=== PATIENT | male | born 1965 | race African-American/Black ===

== ENCOUNTER 2016-11-09 09:08 | Outpatient (CLI) | payer MEDICARE, MEDICAID ==
[2016-11-09 10:45] LABS: Bilirubin Negative (Negative); Blood, Urine Negative (Negative); Glucose, Urine (Dipstick) Negative (Negative); Ketone, Urine Negative (Negative); Nitrite Negative (Negative); Protein, Urine (Dipstick) Negative (Neg-Trace); Urobilinogen 0.2 mg/dL (0.2-1.0)
[2016-11-09 10:48] LABS: Bacteria/HPF None Seen HPF (None Seen); Hyaline Casts/LPF 0-3 HYALINE CAST LPF (0-3 Hyaline); RBC/HPF 0-3 HPF (0-3); Squamous Epithelial 0-3 HPF (0-3); WBC/HPF 0-3 HPF (0-3)
[2016-11-09 10:59] LABS: Anion Gap 10 mmol/L (10-20); BUN (Urea Nitrogen) 13 mg/dL (8.9-20.6); Calc. Creatinine Clearance 0 mL/min (70-130); Calcium 8.8 mg/dL (7.8-10.44); Carbon Dioxide 24 mmol/L (22-29); Chloride 104 mmol/L (98-107); Estimated GFR-MDRD Greater than 90
--- NOTE | 2016-11-09 12:35 | CT ---
CT ABDOMEN WITH AND WITHOUT IV CONTRAST: HISTORY: Urethral stricture. COMPARISON: 06/11/11. FINDING: The renal collecting systems are decompressed without stone evident. No renal masses are apparent. Tiny cyst at the lateral cortex of the left kidney is stable. Liver is diffusely hypodense. Nonsp ecific reactive-appearing lymph nodes in the right lower quadrant are noted. Lack of oral contrast limits evaluation of the bowel. There is no evidence of obstruction. The pelvis was not imaged. Bilateral pars interarticularis defects are apparent at the lumbosacral junction. IMPRESSION: 1. No significant renal abnormalities are demonstrated. 2. Hepatosteatosis. POS: [facility]
[2016-11-09] MEDS ORDERED: Iopamidol 370 76% 100 ML VIAL ONE (14:08)
== END 2016-11-09 09:09 | disposition home or self-care (01) ==
LOC: CT 09:08
PROVIDERS: ATTEND Urology
DX: Z12.5 Encounter for screening for malignant neoplasm of prostate (principal); N35.9 Urethral stricture, unspecified; N28.1 Cyst of kidney, acquired; Z87.448 Personal history of other diseases of urinary system; K76.0 Fatty (change of) liver, not elsewhere classified
CPT/HCPCS: 74170; 80048; 81001; 82565; 87086; 88112; G0103; 36415

== ENCOUNTER 2017-01-19 22:33 | Emergency (ER) | payer MEDICARE, MEDICAID ==
--- NOTE | 2017-01-19 23:20 | RAD ---
EXAM: CHEST ONE VIEW 01/19/17 COMPARISON: 04/02/16 HISTORY: Dyspnea. FINDINGS: Normal cardiac silhouette. Pulmonary vessels and hilum are normal. No mass. No consolidation. No pneu mothorax or osseous abnormality. IMPRESSION: No acute cardiopulmonary process. POS: [facility]
[2017-01-19 23:25] LABS: PTT 31.8 SEC (22.9-36.1); Prothrombin Time 16.5 SEC (12.0-14.7)
[2017-01-19 23:42] LABS: ALT (SGPT) 21 U/L (8-55); AST (SGOT) 23 U/L (5-34); Alkaline Phosphatase 70 U/L (40-150); Anion Gap 9 mmol/L (10-20); BUN (Urea Nitrogen) 19 mg/dL (8.9-20.6); Bilirubin, Total 0.6 mg/dL (0.2-1.2); CK (CPK) 162 U/L (30-200); Calc. Creatinine Clearance 0 mL/min (70-130); Calcium 8.1 mg/dL (7.8-10.44); Carbon Dioxide 23 mmol/L (22-29); Chloride 98 mmol/L (98-107); Estimated GFR-MDRD 64; Globulin 6.9 g/dL (2.4-3.5); Lipase 31 U/L (8-78); Protein, Total 10.1 g/dL (6.0-8.3)
[2017-01-19 23:46] LABS: Troponin I Less than 0.010 ng/mL (< 0.028)
[2017-01-19 23:51] LABS: Band 2 % (5-11); Hematocrit 37.9 % (42.0-52.0); Mean Platelet Volume 8.1 fL (7.4-10.4); Neutrophil 56 % (42-75); Reactive Lymphocytes 3 % (0-10); Red Blood Cell (RBC) Count 4.28 mill/uL (4.70-6.10)
--- NOTE | 2017-01-20 08:00 | ULT ---
PRELIMINARY REPORT/[facility]/EMERGENCY AFTER HOURS PROCEDURE: EXAM: US Abdomen Limited, Right Upper Quadrant EXAM DATE/TIME: Exam ordered 01/19/2017 11:51 PM CLINICAL HISTORY: 51 years old, male; Pain and signs and symptoms; Nausea; Abdominal pain; Flank; Right TECHNIQUE: Real-time ultrasound of the right upper quadrant with image documentation. COMPARISON: No relevant prior studies available. FINDINGS: Liver: The liver is enlarged and echogenic compatible with fatty liver. No intrahepatic bile duct dil ation. Gallbladder: Gallbladder wall thickness measures 2 mm. There is no gallbladder stones or sludge. A negative sonographic Tamez sign is reported. Common bile duct: Common bile duct measures 4 mm. No stones. No dilation. Pancreas: The pancreas is poorly-visualized due to overlying bowel gas. Right kidney: The RIGHT kidney measures 10.5 x 5.6 x 5.0 cm. No stones. No hydronephrosis. IMPRESSION: Hepatic steatosis. Thank you for allowing us to participate in the care of your patient. Dictated and Authenticated by: Dejuan Smith MD 01/20/2017 12:26 AM Central Time ([place] & [place]) FINAL REPORT RIGHT UPPER QUADRANT ULTRASOUND: I agree with the preliminary report given by Dr. Dejuan Smith of [facility]. POS: [facility]
--- NOTE | 2017-02-08 13:54 | EKG ---
Test Reason : Blood Pressure : / mmHG Vent. Rate : 095 BPM Atrial Rate : 095 BPM P-R Int : 156 ms QRS Dur : 094 ms QT Int : 390 ms P-R-T Axes : 029 -16 003 degrees QTc Int : 490 ms Normal sinus rhythm Nonspecific T wave abnormality Prolonged QT Abnormal ECG Confirmed by RENÉ RESENDIZ, RUDDY ([id number]), makeup editor CRESENCIO LIZARRAGA ([id number]) on 02/08/2017 1:52:40 PM Referred By: Confirmed By:RUDDY MERRITT MD
== END 2017-01-20 01:40 | disposition home or self-care (01) ==
LOC: ERS 22:33
DX: R05 Cough (principal); R10.11 Right upper quadrant pain; I10 Essential (primary) hypertension; F32.9 Major depressive disorder, single episode, unspecified; Z79.899 Other long term (current) drug therapy
CPT/HCPCS: 36415; 71010; 76705; 80053; 82550; 82553; 83690; 83880; 84484; 85025; 85379; 85610; 85730; 93005

== ENCOUNTER 2017-03-31 08:20 | Day surgery (SDC) | payer MEDICARE, MEDICAID ==
[2017-03-30 10:50] VITALS: BMI 47.8
[2017-03-31 09:05] LABS: Bilirubin Negative (Negative); Blood, Urine Negative (Negative); Clarity CLEAR (Clear); Glucose, Urine (Dipstick) Negative (Negative); Leukocyte Negative (Negative); Nitrite Negative (Negative); Protein, Urine (Dipstick) Negative (Neg-Trace); Specific Gravity, Urine 1.017 (1.002-1.036); Urobilinogen 0.2 mg/dL (0.2-1.0); pH, Urine 6.5 (5.0-9.0)
[2017-03-31 09:06] LABS: Bacteria/HPF None Seen HPF (None Seen); Hyaline Casts/LPF 0-3 HYALINE CAST LPF (0-3 Hyaline); RBC/HPF 0-3 HPF (0-3); Squamous Epithelial 0-3 HPF (0-3); WBC/HPF 0-3 HPF (0-3)
[2017-03-31 09:08] LABS: PTT 26.9 SEC (22.9-36.1); Prothrombin Time 13.5 SEC (12.0-14.7)
[2017-03-31 09:52] VITALS: BP 126/71; TEMP 98.2
--- NOTE | 2017-03-31 11:54 | CT ---
CT GUIDED BONE MARROW ASPIRATION/BIOPSY: Conscious sedation: 2 milligram Versed, IV. 50 microgram Fentanyl, IV. FINDINGS: After explaining the procedure and answering all questions, the patient was placed on the CT table in prone position. Limited CT imaging was performed. A left posterior approach was planned to the left iliac bone. Sterile technique, buffered local anesthesia, conscious sedation, CT guidance and a posterior approac h were used to carefully advance a bone marrow biopsy needle to the posterior cortex of the iliac bod y. Position was then conformed with CT. The cortex was entered and aspirate was obtained and given to pathology for evaluation. Bone marrow core was then obtained and submitted to pathology. Needle was removed. Post procedure vazquez ging shows no evidence of complication. Patient tolerated the procedure well and was returned to the holding area in good condition for further monitoring. IMPRESSION: Technically successful bone marrow aspiration/biopsy. Pathology is pending. POS: [facility]
== END 2017-03-31 12:15 | disposition home or self-care (01) ==
LOC: CT 08:20
PROVIDERS: ATTEND Internal Medicine Medical Oncology
DX: D47.2 Monoclonal gammopathy (principal)
CPT/HCPCS: 20225; 36415; 77012; 81001; 85097; 85610; 85730; 87086; 88184; 88237; 88264; 88280; 88305; 88311; 88313; 88341; 88342; 88365

== ENCOUNTER 2017-07-02 11:26 | Outpatient (CLI) | payer MEDICARE, MEDICAID | END 2017-07-02 11:27 | disposition home or self-care (01) | LOC: BICRAD 11:26 | PROVIDERS: ATTEND Family Medicine | DX: M25.512 Pain in left shoulder (principal) ==

== ENCOUNTER 2017-07-28 09:17 | Outpatient (CLI) | payer MEDICARE, MEDICAID | END 2017-07-28 09:18 | disposition home or self-care (01) | LOC: BICRAD 09:17 | PROVIDERS: ATTEND Family Medicine | DX: M25.511 Pain in right shoulder (principal); M19.011 Primary osteoarthritis, right shoulder ==

== ENCOUNTER 2017-08-24 09:50 | Outpatient (CLI) | payer MEDICARE, MEDICAID | END 2017-08-24 09:51 | disposition home or self-care (01) | LOC: BICRAD 09:50 | PROVIDERS: ATTEND Internal Medicine Medical Oncology | DX: D47.2 Monoclonal gammopathy (principal); R93.0 Abnormal findings on diagnostic imaging of skull and head, not elsewhere classified | CPT/HCPCS: 77075 ==

== ENCOUNTER 2017-11-24 18:28 | Emergency (ER) | payer MEDICARE, MEDICAID ==
[2017-11-24] MEDS ORDERED: Ketorolac Tromethamine 30 MG/ML VIAL ONE (19:18)
== END 2017-11-24 19:33 | disposition home or self-care (01) ==
LOC: ERS 18:28
DX: K02.9 Dental caries, unspecified (principal); M19.90 Unspecified osteoarthritis, unspecified site; F32.9 Major depressive disorder, single episode, unspecified; I10 Essential (primary) hypertension; K76.0 Fatty (change of) liver, not elsewhere classified; Z79.899 Other long term (current) drug therapy
CPT/HCPCS: 96372; J1885

== ENCOUNTER 2018-01-18 14:04 | Emergency (ER) | payer MEDICARE, MEDICAID ==
[2018-01-18 14:45] LABS: #Basophils 0.1 thou/uL (0.0-0.2); #Eosinphils 0.1 thou/uL (0.0-0.7); #Monocytes 0.5 thou/uL (0.11-0.59); #Neutrophils 2.9 thou/uL (1.40-6.50); %Basophils 0.9 % (0.0-1.0); %Eosinophils 1.8 % (0.0-10.0); %Lymphocytes 36.3 % (21.0-51.0); %Monocytes 8.4 % (0.0-10.0); %Neutrophils 52.6 % (42.0-75.0); Hemoglobin 12.7 g/dL (14.0-18.0); Mean Corpuscular HGB CONC 33.1 g/dL (32.0-36.0); Mean Corpuscular Hemoglobin 29.4 pg (27.0-31.0); Mean Corpuscular Volume 88.6 fL (78.0-98.0); Mean Platelet Volume 8.8 fL (7.4-10.4); Platelet Count 217 thou/uL (130-400); Red Blood Cell (RBC) Count 4.33 mill/uL (4.70-6.10); White Blood Cell (WBC) Count 5.6 thou/uL (4.8-10.8)
[2018-01-18 15:10] LABS: ALT (SGPT) 13 U/L (8-55); AST (SGOT) 14 U/L (5-34); Albumin 3.3 g/dL (3.5-5.0); Alkaline Phosphatase 77 U/L (40-150); Anion Gap 8 mmol/L (10-20); BUN (Urea Nitrogen) 13 mg/dL (8.4-25.7); Bilirubin, Total 0.5 mg/dL (0.2-1.2); Calc. Creatinine Clearance 0 mL/min (70-130); Calcium 8.5 mg/dL (7.8-10.44); Carbon Dioxide 23 mmol/L (22-29); Chloride 107 mmol/L (98-107); Estimated GFR-MDRD Greater than 90; Globulin 6.2 g/dL (2.4-3.5); Glucose 80 mg/dL (70-105); Lipase 37 U/L (8-78); Potassium 3.6 mmol/L (3.5-5.1); Protein, Total 9.5 g/dL (6.0-8.3); Sodium 134 mmol/L (136-145)
[2018-01-18] MEDS ORDERED: Ondansetron PF 4 MG/2 ML Vial ONE (15:15)
[2018-01-18 15:20] LABS: Bilirubin Negative (Negative); Blood, Urine Negative (Negative); Clarity CLEAR (Clear); Glucose, Urine (Dipstick) Negative (Negative); Leukocyte Small (Negative); Nitrite Negative (Negative); Protein, Urine (Dipstick) Negative (Neg-Trace); Specific Gravity, Urine 1.024 (1.002-1.036); Urobilinogen 0.2 mg/dL (0.2-1.0)
[2018-01-18 15:22] LABS: Bacteria/HPF None Seen HPF (None Seen); Hyaline Casts/LPF 0-3 HYALINE CAST LPF (0-3 Hyaline); RBC/HPF 0-3 HPF (0-3); Squamous Epithelial 0-3 HPF (0-3)
--- NOTE | 2018-01-18 15:52 | RAD ---
AP VIEW CHEST: HISTORY: Abdominal pain, vomiting. FINDINGS: AP view chest is obtained on 01/18/2018. Comparison is made to previous exam from 01/19/2017. AP view chest demonstrates the lungs to be well aerated. No evidence of active intrathoracic disease seen. No evidence of effusions, pneumonia, or pneumothorax seen. Old healed right-sided rib fractu res seen. IMPRESSION: Unremarkable AP view chest. POS: [facility]
== END 2018-01-18 17:53 | disposition home or self-care (01) ==
LOC: ERS 14:04
DX: R11.2 Nausea with vomiting, unspecified (principal); I10 Essential (primary) hypertension; E66.9 Obesity, unspecified; M19.90 Unspecified osteoarthritis, unspecified site; F32.9 Major depressive disorder, single episode, unspecified; Z79.899 Other long term (current) drug therapy
CPT/HCPCS: 36415; 71045; 80053; 81003; 81015; 83690; 84484; 85025; 93005; 96361; 96374; J2405

== ENCOUNTER 2018-02-09 08:00 | Emergency (ER) | payer MEDICARE, MEDICAID ==
[2018-02-09] MEDS ORDERED: Ketorolac Tromethamine 30 MG/ML VIAL ONE (08:45)
--- NOTE | 2018-02-09 09:26 | RAD ---
LEFT RIBS 2 VIEWS WITH PA CHEST: Date: 02/09/18 HISTORY: Left-sided rib pain. COMPARISON: Chest radiograph dated 01/18/18. FINDINGS: Multiple old right-sided rib fractures. No acute displaced left-sided rib fracture. Chronic appearing superior end plate compression deformities T9-T11. IMPRESSION: No acute displaced left-sided rib fracture. POS: [facility]
== END 2018-02-09 09:51 | disposition home or self-care (01) ==
LOC: ERS 08:00
DX: R07.89 Other chest pain (principal); I10 Essential (primary) hypertension; E66.9 Obesity, unspecified; F32.9 Major depressive disorder, single episode, unspecified; Z79.899 Other long term (current) drug therapy
CPT/HCPCS: 96372; J1885

== ENCOUNTER 2018-04-06 12:55 | Emergency (ER) | payer MEDICARE, MEDICAID | END 2018-04-06 15:10 | disposition home or self-care (01) | LOC: ERS 12:55 | DX: J06.9 Acute upper respiratory infection, unspecified (principal); K21.9 Gastro-esophageal reflux disease without esophagitis; I10 Essential (primary) hypertension; F32.9 Major depressive disorder, single episode, unspecified; Z79.899 Other long term (current) drug therapy | CPT/HCPCS: 87804; 99283 ==

== ENCOUNTER 2018-05-18 01:22 | Emergency (ER) | payer MEDICARE, MEDICAID ==
[2018-05-18] MEDS ORDERED: Ondansetron ODT 4 MG TAB ONE (02:33)
[2018-05-18] MEDS ORDERED: Acetaminophen 500 MG TAB ONE (02:33)
[2018-05-18] MEDS ORDERED: Dicyclomine 20 MG TAB ONE (02:33)
== END 2018-05-18 06:26 | disposition home or self-care (01) ==
LOC: ERS 01:22
DX: J11.1 Influenza due to unidentified influenza virus with other respiratory manifestations (principal); I10 Essential (primary) hypertension; E66.9 Obesity, unspecified; F32.9 Major depressive disorder, single episode, unspecified; M19.90 Unspecified osteoarthritis, unspecified site
CPT/HCPCS: 99283; Q0162

== ENCOUNTER 2018-05-23 13:56 | Inpatient (IN) | payer MEDICARE, MEDICAID ==
[2018-05-23 14:44] LABS: Bilirubin Negative (Negative); Blood, Urine Small (Negative); Clarity CLEAR (Clear); Glucose, Urine (Dipstick) Negative (Negative); Leukocyte Negative (Negative); Nitrite Negative (Negative); Protein, Urine (Dipstick) Negative (Neg-Trace); Specific Gravity, Urine 1.015 (1.002-1.036); Urobilinogen 0.2 mg/dL (0.2-1.0); pH, Urine 5.5 (5.0-9.0)
[2018-05-23 14:45] LABS: Bacteria/HPF None Seen HPF (None Seen); Hyaline Casts/LPF 0-3 HYALINE CAST LPF (0-3 Hyaline); Pathc Cast-AUWi Flag 0.27 (0-2.49); RBC/HPF 0-3 HPF (0-3); Squamous Epithelial None Seen HPF (0-3); WBC/HPF 0-3 HPF (0-3)
--- NOTE | 2018-05-23 14:54 | RAD ---
TWO VIEW CHEST: HISTORY: Cough. Influenza. COMPARISON: 01/18/2018. FINDINGS: There I confluent infiltrate/consolidation involving the right mid lung field. This probably represe nts superior segment of the right lower lobe. The left lung appears clear. Heart and mediastinum unremarkable. IMPRESSION: New consolidation of the posterior right mid lung consistent with pneumonia. Continued close followu p recommended. POS: [facility]
[2018-05-23 14:57] LABS: Mean Corpuscular HGB CONC 32.4 g/dL (32.0-36.0); Mean Corpuscular Hemoglobin 29.5 pg (27.0-31.0); Mean Corpuscular Volume 91.1 fL (78.0-98.0); Mean Platelet Volume 8.5 fL (7.4-10.4); Platelet Count 181 thou/uL (130-400); RBC Distribution Width 12.9 % (11.5-14.5); Red Blood Cell (RBC) Count 4.07 mill/uL (4.70-6.10); White Blood Cell (WBC) Count 15.3 thou/uL (4.8-10.8)
[2018-05-23] MEDS ORDERED: Ibuprofen 200 MG TAB ONE (15:08)
[2018-05-23 15:13] LABS: Band 7 % (5-11); Lymphocytes 12 % (21-51); MDiff Complete? YES; Monocytes 1 % (0-10); Neutrophil 80 % (42-75); Platelet Morphology Comment Appears Adequate; RBC Morphology Normal
[2018-05-23 15:16] LABS: ALT (SGPT) 27 U/L (8-55); AST (SGOT) 18 U/L (5-34); Albumin 3.3 g/dL (3.5-5.0); Alkaline Phosphatase 51 U/L (40-150); Anion Gap 12 mmol/L (10-20); BUN (Urea Nitrogen) 8 mg/dL (8.4-25.7); Bilirubin, Total 0.9 mg/dL (0.2-1.2); Calc. Creatinine Clearance 0 mL/min (70-130); Calcium 8.2 mg/dL (7.8-10.44); Carbon Dioxide 21 mmol/L (22-29); Chloride 105 mmol/L (98-107); Estimated GFR-MDRD Greater than 90; Globulin 6.2 g/dL (2.4-3.5); Glucose 106 mg/dL (70-105); Potassium 3.5 mmol/L (3.5-5.1); Protein, Total 9.5 g/dL (6.0-8.3); Sodium 134 mmol/L (136-145)
[2018-05-23] MEDS ORDERED: Piperacillin/Tazobactam 4.5 GM VIAL ONE (16:21)
[2018-05-23] MEDS ORDERED: methylPREDNISolone Sod Succ 40 MG VIAL IVP SCH (19:15)
[2018-05-23] MEDS: Sodium Chloride 0.9% 1,000 ML IV SCH (20:11)
[2018-05-23 20:24] VITALS: BMI 42.5
[2018-05-23] MEDS: Acetaminophen 325 MG TAB PO PRN (21:29)
[2018-05-23] MEDS: Bupropion 150 MG XL TAB PO SCH (21:29)
[2018-05-23] MEDS: Vancomycin HCl 1.5 GM in Sodium Chloride 0.9% 250 ML 300 ML IVPB SCH (23:43)
--- NOTE | 2018-05-24 01:43 | HP ---
CHIEF COMPLAINT: Shortness of breath and right-sided chest pain. HISTORY OF PRESENT ILLNESS: The patient is a 52-year-old male with past medical history of hypertension, obesity, and anemia, has been seen following up with Hematology/Oncology and underwent a bone marrow in 2018, which indicated plasma cell myeloma. The patient's myeloma FISH panel was pending at that time. The patient came in for shortness of breath, cough, and right-sided chest pain. The patient stated that for the past 10 days, his daughter initially was sick, had a flu. The patient was put on Tamiflu prophylactic, which he finished the dose today. The patient stated that after he took the dose today, when he took a deep breath or cough, he started having significant amount of right-sided pain in his chest area. The patient also states that he has been having fevers and chills. He denies any nausea or vomiting; however, felt that he has not been eating very much, has had a low appetite. The patient also has been having some body aches and pains. The patient stated that today he just could not take it, so he came into the ER for further evaluation. The patient also states that he normally is supposed to use a CPAP; however, has not been using it. The patient normally sleeps propped up due to his back. The patient has been complaining of just generalized weakness going on for the past few days. PAST MEDICAL HISTORY: 1. He has a history of anemia. 2. He has a history of sleep apnea. 3. Hypertension. 4. IgG monoclonal gammopathy, following up with Dr. Farmer. 5. Chronic back pain. 6. Asthma. PAST SURGICAL HISTORY: He has had a right rotator cuff x2, right hip, and cystoscopy. ALLERGIES: HE IS ALLERGIC TO LATEX. HE GETS RASH SIDE EFFECT. MEDICATIONS: Home medications are as of the following; 1. He uses a DuoNeb. 2. Norvasc 10 mg daily. 3. Bupropion 150 mg p.o. b.i.d. 4. Protonix 20 mg daily. 5. Losartan/hydrochlorothiazide 50/12.5, 1 p.o. daily. FAMILY HISTORY: Has a family history of CAD in father, mother, brother, and sister. SOCIAL HISTORY: He is , lives with his family. No tobacco use. Very occasional alcohol use. No drug use. He is a full code and lives with his family. REVIEW OF SYSTEMS: All negative except for the ones mentioned above in the HPI. PHYSICAL EXAMINATION: VITAL SIGNS: Temperature, initially when he came was 102.0, 95% on room air. He was 110/60, heart rate was 102, respirations were 18. GENERAL: He is awake, alert, and oriented x3. Does not appear in any distress, however, does appear ill. HEENT: Normocephalic, atraumatic. No lymphadenopathy noted. Pupils equal and reactive to light. CV: S1 and S2 present. No murmurs heard. LUNGS: Mild expiratory wheezing. Mild crackles to bilateral lower lung bases. ABDOMEN: Soft and nontender. Bowel sounds are present x2. CHEST: Chest wall, the patient has pain on palpation of his right chest wall area. NEUROVASCULAR: No focal deficits noted. SKIN: No cuts, lesions, or bruises noted. EXTREMITIES: No edema. Pedal pulses are present x2. LABORATORY RESULTS: As of the following; WBCs of 15.3, hemoglobin of 12.0, hematocrit of 37.1, platelets of 181 with 7 bands and 80 neutrophils. Chemistry, sodium of 134, potassium of 3.5, BUN of 8, creatinine of 0.94. The patient's chest x-ray indicates right upper and middle lobe pneumonia. ASSESSMENT AND PLAN: The patient is a 52-year-old male, who presents to the hospital with complaints of shortness of breath. 1. Sepsis. We will start the patient on broad-spectrum antibiotics. The patient currently is not on any treatment; however, he does have a monoclonal gammopathy and this is also a post flu pneumonia community-acquired methicillin-resistant Staphylococcus aureus, so most likely I will start the patient on either Levaquin and vancomycin or ceftriaxone and vancomycin, and may add an atypical coverage. We will also start the patient on some DuoNebs. We will also start the patient on some mild dose of steroids given his history of asthma. We will also go ahead and check a sputum for culture and sensitivity. We will check a Strep pneumoniae and Legionella antigen. 2. Leukocytosis, most likely secondary to his underlying pneumonia. 3. Pneumonia. We will continue to monitor. 4. Anemia. This is at his baseline. 5. Hypertension. We will continue his medications. 6. Deep venous thrombosis prophylaxis. We will put the patient on Lovenox. Job ID: [id number]
[2018-05-24 02:52] LABS: Legionella Urinary Ag Negative (Negative); Strep pneumo Urine Ag NEGATIVE (NEGATIVE)
[2018-05-24 07:55] LABS: Anion Gap 14 mmol/L (10-20); BUN (Urea Nitrogen) 10 mg/dL (8.4-25.7); Calc. Creatinine Clearance 198 mL/min (70-130); Calcium 7.9 mg/dL (7.8-10.44); Carbon Dioxide 18 mmol/L (22-29); Chloride 109 mmol/L (98-107); Estimated GFR-MDRD Greater than 90; Glucose 129 mg/dL (70-105); Potassium 4.1 mmol/L (3.5-5.1); Sodium 137 mmol/L (136-145)
[2018-05-24 08:06] LABS: Band 31 % (5-11); Lymphocytes 1 % (21-51); MDiff Complete? YES; Mean Corpuscular HGB CONC 30.9 g/dL (32.0-36.0); Mean Corpuscular Hemoglobin 28.1 pg (27.0-31.0); Mean Corpuscular Volume 90.9 fL (78.0-98.0); Mean Platelet Volume 9.6 fL (7.4-10.4); Metamyelocyte 2 % (0-0); Monocytes 2 % (0-10); Neutrophil 64 % (42-75); Platelet Count 140 thou/uL (130-400); Platelet Morphology Comment Appears Adequate; Polychromasia SLIGHT = 2-3 cells (100X) (0-2/hpf); RBC Distribution Width 12.9 % (11.5-14.5); Red Blood Cell (RBC) Count 4.28 mill/uL (4.70-6.10); White Blood Cell (WBC) Count 33.1 thou/uL (4.8-10.8)
[2018-05-24] MEDS: Vancomycin HCl 1.5 GM in Sodium Chloride 0.9% 250 ML 300 ML IVPB SCH ×2 (09:12→15:42)
[2018-05-24] MEDS: methylPREDNISolone Sod Succ 40 MG VIAL IVP SCH (09:18)
[2018-05-24] MEDS: Amlodipine 10 MG TAB PO SCH (09:19)
[2018-05-24] MEDS: Bupropion 150 MG XL TAB PO SCH ×2 (09:25→20:35)
[2018-05-24] MEDS: Sodium Chloride 0.9% 1,000 ML IV SCH ×3 (09:55→23:05)
--- NOTE | 2018-05-24 11:49 | CT ---
EXAM: Chest CT scan With contrast: HISTORY: Leukocytosis/fever, follow-up pneumonia COMPARISON: Chest 2 views, 05/23/2018 FINDINGS: Small nonpathologic mediastinal and prevascular lymph nodes, but no adenopathy. Confluent alveolar parenchymal change in the right upper lobe evidence for pneumonia. Minimal streaky parenchymal changes in the right lower lobe probably some partial, subsegmental atele ctasis. No pleural or pericardial effusion. The visualized upper abdomen is unremarkable. IMPRESSION: Right upper lobe pneumonia. Minimal right lower lobe subsegmental atelectasis.
[2018-05-24] MEDS: Piperacillin/Tazobactam 4.5 GM in Sodium Chloride 0.9% 100 ML IVPB SCH ×3 (12:38→22:55)
--- NOTE | 2018-05-24 16:43 | PDOC.PN ---
- Subjective Encounter Start Date: 05/24/18 Encounter Start Time: 10:00 Subjective: pt up in bed feels much better but still has sob - Objective Resuscitation Status - Order Detail: 05/23/18 18:03 Resuscitation Status Routine Resuscitation Status: FULL: Full Resuscitation Vital Signs & Weight: Vital Signs (12 hours) Temp Pulse Resp BP Pulse Ox 05/24/18 16:00 98.4 F 90 20 98/56 L 95 05/24/18 13:21 103 H 18 96 05/24/18 08:12 98.1 F 90 18 128/78 92 L 05/24/18 07:00 70 16 97 05/24/18 05:17 97.7 F 74 18 135/82 97 Weight Weight 296 lb 8.348 oz I&O: 05/23/18 05/24/18 05/25/18 06:59 06:59 06:59 Intake Total 1505 480 Balance 1505 480 Result Diagrams: 05/24/18 07:02 05/24/18 07:02 Phys Exam - Physical Examination Neck: no nodes, no JVD, supple, full ROM Respiratory: wheezing present Cardiovascular: RRR, no significant murmur, no rub, gallop, irregular Gastrointestinal: soft, non-tender, no distention, positive bowel sounds Dx/Plan (1) Sepsis Code(s): A41.9 - SEPSIS, UNSPECIFIED ORGANISM Status: Acute (2) Pneumonia and influenza Status: Acute (3) Obesity Code(s): E66.9 - OBESITY, UNSPECIFIED Status: Acute - Plan pt had significant elevated wbc possible steroid vs empyema -: ct chest ordered. will monitor. continue abx for now. * . Review of Systems - Review of Systems Respiratory: Cough Cardiovascular: negative: chest pain, palpitations, orthopnea, paroxysmal nocturnal dyspnea, edema, light headedness, other Gastrointestinal: negative: Nausea, Vomiting, Abdominal Pain, Diarrhea, Constipation, Melena, Hematochezia, Other Genitourinary: negative: Dysuria, Frequency, Incontinence, Hematuria, Retention , Other - Medications/Allergies Allergies/Adverse Reactions: Allergies Allergy/AdvReac Type Severity Reaction Status Date / Time latex Allergy Intermediate Rash Verified 05/23/18 20:25 Medications: Current Medications Acetaminophen (Tylenol) 650 mg PO Q6H PRN PRN Reason: Headache/Fever or Pain Last Admin: 05/23/18 21:29 Dose: 650 mg Albuterol/Ipratropium (Duoneb) 3 ml NEB [id number] [facility] Last Admin: 05/24/18 13:21 Dose: 3 ml Amlodipine Besylate (Norvasc) 10 mg PO DAILY [facility] Last Admin: 05/24/18 09:19 Dose: 10 mg Bupropion HCl (Wellbutrin Xl) 150 mg PO BID [facility] Last Admin: 05/24/18 09:25 Dose: 150 mg Sodium Chloride (Normal Saline 0.9%) 1,000 mls @ 75 mls/hr IV .[id number] [facility] Last Admin: 05/24/18 15:36 Dose: 1,000 mls Vancomycin HCl 1.5 gm/ Sodium (Chloride) 300 mls @ 200 mls/hr IVPB 0800,1600, 2359 [facility] Last Admin: 05/24/18 15:42 Dose: 300 mls Piperacillin Sod/Tazobactam (Sod 4.5 gm/ Sodium Chloride) 100 mls @ 200 mls/hr IVPB Q6HR [facility] Last Admin: 05/24/18 12:38 Dose: 100 mls Methylprednisolone Sodium Succinate (Solu-Medrol) 20 mg IVP DAILY [facility] Last Admin: 05/24/18 09:18 Dose: 20 mg Miscellaneous Medication (Pharmacy To Dose) 1 each IVPB PRN PRN PRN Reason: Pharmacy to dose Pantoprazole Sodium (Protonix) 20 mg PO DAILY [facility] Last Admin: 05/24/18 09:18 Dose: 20 mg Sodium Chloride (Flush - Normal Saline) 10 ml IVF Q12HR [facility] Last Admin: 05/24/18 09:16 Dose: 10 ml Sodium Chloride (Flush - Normal Saline) 10 ml IVF PRN PRN PRN Reason: Saline Flush
[2018-05-24] MEDS ORDERED: ISOVUE-370 76%-LOCM 1 ML ONE (16:51)
[2018-05-24] MEDS: guaiFENesin ER 600 MG TAB PO SCH (20:35)
[2018-05-24] MEDS: Benzonatate 100 MG CAP PO PRN (20:35)
[2018-05-24] MEDS: Acetaminophen 325 MG TAB PO PRN (23:01)
[2018-05-25] MEDS: Vancomycin HCl 1.5 GM in Sodium Chloride 0.9% 250 ML 300 ML IVPB SCH ×3 (00:30→16:26)
[2018-05-25] MEDS: Piperacillin/Tazobactam 4.5 GM in Sodium Chloride 0.9% 100 ML IVPB SCH ×3 (05:29→18:23)
[2018-05-25 06:30] LABS: Hemoglobin 10.9 g/dL (14.0-18.0); Mean Corpuscular HGB CONC 32.2 g/dL (32.0-36.0); Mean Corpuscular Hemoglobin 29.6 pg (27.0-31.0); Mean Corpuscular Volume 91.8 fL (78.0-98.0); Mean Platelet Volume 9.1 fL (7.4-10.4); Platelet Count 204 thou/uL (130-400); RBC Distribution Width 12.9 % (11.5-14.5); Red Blood Cell (RBC) Count 3.69 mill/uL (4.70-6.10); White Blood Cell (WBC) Count 30.1 thou/uL (4.8-10.8)
[2018-05-25 06:54] LABS: Band 4 % (5-11); Hypochromia SLIGHT = 6-15 cells (100X) (0-5/hpf); Lymphocytes 2 % (21-51); MDiff Complete? YES; Monocytes 1 % (0-10); Neutrophil 93 % (42-75); Platelet Morphology Comment Appears Adequate
[2018-05-25] MEDS: Bupropion 150 MG XL TAB PO SCH ×2 (09:29→20:21)
[2018-05-25] MEDS: Amlodipine 10 MG TAB PO SCH (09:29)
[2018-05-25] MEDS: guaiFENesin ER 600 MG TAB PO SCH ×2 (09:29→20:21)
[2018-05-25] MEDS: methylPREDNISolone Sod Succ 40 MG VIAL IVP SCH (09:30)
[2018-05-25 15:28] LABS: Vancomycin, Trough 19.8 ug/mL
[2018-05-25] MEDS: Sodium Chloride 0.9% 1,000 ML IV SCH (18:23)
[2018-05-25] MEDS: Amitriptyline HCl 25 MG TAB PO SCH (20:21)
[2018-05-25] MEDS: Benzonatate 100 MG CAP PO PRN (20:21)
--- NOTE | 2018-05-25 20:58 | PDOC.PN ---
- Subjective Encounter Start Date: 05/25/18 Encounter Start Time: 10:00 Subjective: pt up in chair feels better - Objective Resuscitation Status - Order Detail: 05/23/18 18:03 Resuscitation Status Routine Resuscitation Status: FULL: Full Resuscitation Vital Signs & Weight: Vital Signs (12 hours) Temp Pulse Resp BP BP Pulse Ox 05/25/18 19:09 87 16 95 05/25/18 12:43 85 16 95 05/25/18 12:00 98.4 F 79 18 117/78 97 05/25/18 09:29 95 124/79 Weight Weight 296 lb 8.348 oz I&O: 05/24/18 05/25/18 05/26/18 06:59 06:59 06:59 Intake Total 0443 808 7857 Balance 9469 505 8757 Result Diagrams: 05/25/18 05:57 05/24/18 07:02 Phys Exam - Physical Examination Neck: no nodes, no JVD, supple, full ROM Respiratory: no wheezing, no rales, no rhonchi, wheezing present, clear to auscultation bilateral Cardiovascular: RRR, no significant murmur, no rub, gallop, irregular Gastrointestinal: soft, non-tender, no distention, positive bowel sounds Dx/Plan (1) Sepsis Code(s): A41.9 - SEPSIS, UNSPECIFIED ORGANISM Status: Acute (2) Pneumonia and influenza Status: Acute (3) Obesity Code(s): E66.9 - OBESITY, UNSPECIFIED Status: Acute - Plan mild improvement in wbc, will discontinue steroids for now -: will continue abx for now -: sputum cx pending. * . Review of Systems - Review of Systems Respiratory: Cough, Shortness of Breath. negative: Dry, Hemoptysis, SOB with Excertion, Pleuritic Pain, Sputum, Wheezing Cardiovascular: negative: chest pain, palpitations, orthopnea, paroxysmal nocturnal dyspnea, edema, light headedness, other Gastrointestinal: negative: Nausea, Vomiting, Abdominal Pain, Diarrhea, Constipation, Melena, Hematochezia, Other Genitourinary: negative: Dysuria, Frequency, Incontinence, Hematuria, Retention , Other - Medications/Allergies Allergies/Adverse Reactions: Allergies Allergy/AdvReac Type Severity Reaction Status Date / Time latex Allergy Intermediate Rash Verified 05/23/18 20:25 Medications: Current Medications Acetaminophen (Tylenol) 650 mg PO Q6H PRN PRN Reason: Headache/Fever or Pain Last Admin: 05/24/18 23:01 Dose: 650 mg Albuterol/Ipratropium (Duoneb) 3 ml NEB [id number] [facility] Last Admin: 05/25/18 19:09 Dose: 3 ml Amitriptyline HCl (Elavil) 50 mg PO HS [facility] Last Admin: 05/25/18 20:21 Dose: 50 mg Amlodipine Besylate (Norvasc) 10 mg PO DAILY [facility] Last Admin: 05/25/18 09:29 Dose: 10 mg Benzonatate (Tessalon) 100 mg PO TIDPRN PRN PRN Reason: Cough Last Admin: 05/25/18 20:21 Dose: 100 mg Bupropion HCl (Wellbutrin Xl) 150 mg PO BID [facility] Last Admin: 05/25/18 20:21 Dose: 150 mg Guaifenesin (Mucinex) 600 mg PO Q12HR [facility] Last Admin: 05/25/18 20:21 Dose: 600 mg Sodium Chloride (Normal Saline 0.9%) 1,000 mls @ 75 mls/hr IV .[id number] [facility] Last Admin: 05/25/18 18:23 Dose: 1,000 mls Vancomycin HCl 1.5 gm/ Sodium (Chloride) 300 mls @ 200 mls/hr IVPB 0800,1600, 2359 [facility] Last Admin: 05/25/18 16:26 Dose: 300 mls Piperacillin Sod/Tazobactam (Sod 4.5 gm/ Sodium Chloride) 100 mls @ 200 mls/hr IVPB Q6HR [facility] Last Admin: 05/25/18 18:23 Dose: 100 mls Methylprednisolone Sodium Succinate (Solu-Medrol) 20 mg IVP DAILY [facility] Last Admin: 05/25/18 09:30 Dose: 20 mg Miscellaneous Medication (Pharmacy To Dose) 1 each IVPB PRN PRN PRN Reason: Pharmacy to dose Pantoprazole Sodium (Protonix) 20 mg PO DAILY [facility] Last Admin: 05/25/18 09:29 Dose: 20 mg Sodium Chloride (Flush - Normal Saline) 10 ml IVF Q12HR [facility] Last Admin: 05/25/18 20:20 Dose: Not Given Sodium Chloride (Flush - Normal Saline) 10 ml IVF PRN PRN PRN Reason: Saline Flush
[2018-05-26] MEDS: Piperacillin/Tazobactam 4.5 GM in Sodium Chloride 0.9% 100 ML IVPB SCH ×5 (00:22→23:37)
[2018-05-26] MEDS: Vancomycin HCl 1.5 GM in Sodium Chloride 0.9% 250 ML 300 ML IVPB SCH ×3 (00:23→16:10)
[2018-05-26] MEDS: Sodium Chloride 0.9% 1,000 ML IV SCH ×2 (01:18→18:01)
[2018-05-26] MEDS: Bupropion 150 MG XL TAB PO SCH ×2 (09:27→21:10)
[2018-05-26] MEDS: guaiFENesin ER 600 MG TAB PO SCH ×2 (09:27→21:10)
[2018-05-26] MEDS: Amlodipine 10 MG TAB PO SCH (09:27)
[2018-05-26] MEDS: Benzonatate 100 MG CAP PO PRN ×2 (09:33→18:00)
[2018-05-26 09:55] LABS: Hemoglobin 11.4 g/dL (14.0-18.0); Mean Corpuscular HGB CONC 31.8 g/dL (32.0-36.0); Mean Corpuscular Hemoglobin 29.4 pg (27.0-31.0); Mean Corpuscular Volume 92.5 fL (78.0-98.0); Mean Platelet Volume 8.9 fL (7.4-10.4); Platelet Count 252 thou/uL (130-400); RBC Distribution Width 13.2 % (11.5-14.5); Red Blood Cell (RBC) Count 3.89 mill/uL (4.70-6.10)
[2018-05-26 10:35] LABS: Band 6 % (5-11); Lymphocytes 14 % (21-51); MDiff Complete? YES; Monocytes 5 % (0-10); Myelocyte 1 % (0-0); Neutrophil 74 % (42-75); RBC Morphology Normal
[2018-05-26] MEDS: Ondansetron PF 4 MG/2 ML Vial SLOW IVP PRN (11:32)
--- NOTE | 2018-05-26 14:53 | PDOC.PN ---
- Subjective Encounter Start Time: 10:30 Subjective: pt up in bed complains of nausea - Objective Resuscitation Status - Order Detail: 05/23/18 18:03 Resuscitation Status Routine Resuscitation Status: FULL: Full Resuscitation Vital Signs & Weight: Vital Signs (12 hours) Temp Pulse Resp BP Pulse Ox 05/26/18 14:18 85 20 96 05/26/18 08:11 98.2 F 85 18 126/85 96 05/26/18 08:00 96 05/26/18 07:24 109 H 24 H 92 L Weight Weight 296 lb 8.348 oz I&O: 05/25/18 05/26/18 05/27/18 06:59 06:59 06:59 Intake Total 960 1799 Balance 960 1799 Result Diagrams: 05/26/18 08:42 05/24/18 07:02 Phys Exam - Physical Examination Neck: no nodes, no JVD, supple, full ROM Respiratory: no wheezing, no rales, no rhonchi, wheezing present, clear to auscultation bilateral Cardiovascular: RRR, no significant murmur, no rub, gallop, irregular Gastrointestinal: soft, non-tender, no distention, positive bowel sounds Musculoskeletal: no edema, pulses present, edema present Dx/Plan (1) Sepsis Code(s): A41.9 - SEPSIS, UNSPECIFIED ORGANISM Status: Acute (2) Pneumonia and influenza Status: Acute (3) Obesity Code(s): E66.9 - OBESITY, UNSPECIFIED Status: Acute - Plan will conitnue abx for now -: will check cmp and lipase -: if his nausea continues may consider getting ruq ultrasound * . Review of Systems - Review of Systems Respiratory: negative: Cough, Dry, Shortness of Breath, Hemoptysis, SOB with Excertion, Pleuritic Pain, Sputum, Wheezing Cardiovascular: negative: chest pain, palpitations, orthopnea, paroxysmal nocturnal dyspnea, edema, light headedness, other Gastrointestinal: Nausea, Vomiting. negative: Abdominal Pain, Diarrhea, Constipation, Melena, Hematochezia, Other Genitourinary: negative: Dysuria, Frequency, Incontinence, Hematuria, Retention , Other - Medications/Allergies Allergies/Adverse Reactions: Allergies Allergy/AdvReac Type Severity Reaction Status Date / Time latex Allergy Intermediate Rash Verified 05/23/18 20:25 Medications: Current Medications Acetaminophen (Tylenol) 650 mg PO Q6H PRN PRN Reason: Headache/Fever or Pain Last Admin: 05/24/18 23:01 Dose: 650 mg Albuterol/Ipratropium (Duoneb) 3 ml NEB [id number] [facility] Last Admin: 05/26/18 14:18 Dose: 3 ml Amitriptyline HCl (Elavil) 50 mg PO HS [facility] Last Admin: 05/25/18 20:21 Dose: 50 mg Amlodipine Besylate (Norvasc) 10 mg PO DAILY [facility] Last Admin: 05/26/18 09:27 Dose: 10 mg Benzonatate (Tessalon) 100 mg PO TIDPRN PRN PRN Reason: Cough Last Admin: 05/26/18 09:33 Dose: 100 mg Bupropion HCl (Wellbutrin Xl) 150 mg PO BID [facility] Last Admin: 05/26/18 09:27 Dose: 150 mg Guaifenesin (Mucinex) 600 mg PO Q12HR [facility] Last Admin: 05/26/18 09:27 Dose: 600 mg Sodium Chloride (Normal Saline 0.9%) 1,000 mls @ 75 mls/hr IV .[id number] [facility] Last Admin: 05/26/18 01:18 Dose: Not Given Vancomycin HCl 1.5 gm/ Sodium (Chloride) 300 mls @ 200 mls/hr IVPB 0800,1600, 2359 [facility] Last Admin: 05/26/18 08:33 Dose: 300 mls Piperacillin Sod/Tazobactam (Sod 4.5 gm/ Sodium Chloride) 100 mls @ 200 mls/hr IVPB Q6HR [facility] Last Admin: 05/26/18 11:33 Dose: 100 mls Miscellaneous Medication (Pharmacy To Dose) 1 each IVPB PRN PRN PRN Reason: Pharmacy to dose Ondansetron HCl (Zofran) 4 mg SLOW IVP Q6H PRN PRN Reason: Nausea/Vomiting Last Admin: 05/26/18 11:32 Dose: 4 mg Pantoprazole Sodium (Protonix) 20 mg PO DAILY [facility] Last Admin: 05/26/18 09:28 Dose: 20 mg Sodium Chloride (Flush - Normal Saline) 10 ml IVF Q12HR [facility] Last Admin: 05/26/18 09:29 Dose: Not Given Sodium Chloride (Flush - Normal Saline) 10 ml IVF PRN PRN PRN Reason: Saline Flush
[2018-05-26 15:35] LABS: ALT (SGPT) 21 U/L (8-55); AST (SGOT) 17 U/L (5-34); Albumin 3.2 g/dL (3.5-5.0); Alkaline Phosphatase 54 U/L (40-150); Anion Gap 8 mmol/L (10-20); BUN (Urea Nitrogen) 8 mg/dL (8.4-25.7); Bilirubin, Total 0.3 mg/dL (0.2-1.2); Calc. Creatinine Clearance 177 mL/min (70-130); Calcium 8.1 mg/dL (7.8-10.44); Carbon Dioxide 26 mmol/L (22-29); Chloride 110 mmol/L (98-107); Estimated GFR-MDRD Greater than 90; Globulin 5.2 g/dL (2.4-3.5); Glucose 92 mg/dL (70-105); Lipase 45 U/L (8-78); Potassium 3.1 mmol/L (3.5-5.1); Protein, Total 8.4 g/dL (6.0-8.3); Sodium 141 mmol/L (136-145); Vancomycin, Trough 28.9 ug/mL
[2018-05-26] MEDS: Acetaminophen 325 MG TAB PO PRN (18:00)
[2018-05-26] MEDS: Amitriptyline HCl 25 MG TAB PO SCH (21:11)
[2018-05-27] MEDS: Piperacillin/Tazobactam 4.5 GM in Sodium Chloride 0.9% 100 ML IVPB SCH ×2 (05:57→11:45)
[2018-05-27] MEDS: Sodium Chloride 0.9% 1,000 ML IV SCH (06:00)
[2018-05-27 06:08] LABS: #Basophils 0.1 thou/uL (0.0-0.2); #Eosinphils 0.2 thou/uL (0.0-0.7); #Lymphocytes 1.7 thou/uL (1.20-3.40); #Monocytes 1.2 thou/uL (0.11-0.59); #Neutrophils 7.3 thou/uL (1.40-6.50); %Basophils 0.6 % (0.0-1.0); %Eosinophils 1.4 % (0.0-10.0); %Lymphocytes 16.5 % (21.0-51.0); %Monocytes 11.1 % (0.0-10.0); %Neutrophils 70.3 % (42.0-75.0); Hemoglobin 11.5 g/dL (14.0-18.0); Mean Corpuscular HGB CONC 32.2 g/dL (32.0-36.0); Mean Corpuscular Hemoglobin 29.6 pg (27.0-31.0); Mean Corpuscular Volume 91.8 fL (78.0-98.0); Platelet Count 279 thou/uL (130-400); RBC Distribution Width 13.1 % (11.5-14.5); Red Blood Cell (RBC) Count 3.88 mill/uL (4.70-6.10); White Blood Cell (WBC) Count 10.4 thou/uL (4.8-10.8)
[2018-05-27] MEDS ORDERED: Vancomycin HCl 1.5 GM in Sodium Chloride 0.9% 250 ML 300 ML IVPB SCH (08:00)
[2018-05-27] MEDS ORDERED: Vancomycin HCl 1 GM in Premix Bag 1 BAG IVPB SCH (08:00)
[2018-05-27] MEDS: Bupropion 150 MG XL TAB PO SCH ×2 (10:13→20:12)
[2018-05-27] MEDS: guaiFENesin ER 600 MG TAB PO SCH ×2 (10:13→20:10)
[2018-05-27] MEDS: Amlodipine 10 MG TAB PO SCH (10:13)
[2018-05-27] MEDS: Benzonatate 100 MG CAP PO PRN (10:16)
[2018-05-27] MEDS: Ondansetron PF 4 MG/2 ML Vial SLOW IVP PRN (13:34)
--- NOTE | 2018-05-27 14:00 | PDOC.PN ---
- Subjective Encounter Start Date: 05/27/18 Encounter Start Time: 10:00 Subjective: pt up in bed feels much better today, no nausea - Objective Resuscitation Status - Order Detail: 05/23/18 18:03 Resuscitation Status Routine Resuscitation Status: FULL: Full Resuscitation Vital Signs & Weight: Vital Signs (12 hours) Temp Pulse Resp BP Pulse Ox 05/27/18 08:10 80 12 05/27/18 08:00 94 L 05/27/18 07:21 98.8 F 80 20 128/81 94 L Weight Weight 296 lb 8.348 oz I&O: 05/26/18 05/27/18 05/28/18 06:59 06:59 06:59 Intake Total 1799 Balance 1799 Result Diagrams: 05/27/18 05:40 05/26/18 14:54 Phys Exam - Physical Examination Neck: no nodes, no JVD, supple, full ROM Respiratory: no wheezing, no rales, no rhonchi, wheezing present, clear to auscultation bilateral Cardiovascular: RRR, no significant murmur, no rub, gallop, irregular Gastrointestinal: soft, non-tender, no distention, positive bowel sounds Musculoskeletal: no edema, pulses present, edema present Dx/Plan (1) Sepsis Code(s): A41.9 - SEPSIS, UNSPECIFIED ORGANISM Status: Acute (2) Pneumonia and influenza Status: Acute (3) Obesity Code(s): E66.9 - OBESITY, UNSPECIFIED Status: Acute - Plan will change to oral abx -: possible dc in am * . Review of Systems - Review of Systems Respiratory: negative: Cough, Dry, Shortness of Breath, Hemoptysis, SOB with Excertion, Pleuritic Pain, Sputum, Wheezing Cardiovascular: negative: chest pain, palpitations, orthopnea, paroxysmal nocturnal dyspnea, edema, light headedness, other Gastrointestinal: negative: Nausea, Vomiting, Abdominal Pain, Diarrhea, Constipation, Melena, Hematochezia, Other Genitourinary: negative: Dysuria, Frequency, Incontinence, Hematuria, Retention , Other - Medications/Allergies Allergies/Adverse Reactions: Allergies Allergy/AdvReac Type Severity Reaction Status Date / Time latex Allergy Intermediate Rash Verified 05/23/18 20:25 Medications: Current Medications Acetaminophen (Tylenol) 650 mg PO Q6H PRN PRN Reason: Headache/Fever or Pain Last Admin: 05/26/18 18:00 Dose: 650 mg Albuterol/Ipratropium (Duoneb) 3 ml NEB [id number] [facility] Last Admin: 05/27/18 08:10 Dose: 3 ml Amitriptyline HCl (Elavil) 50 mg PO HS [facility] Last Admin: 05/26/18 21:11 Dose: Not Given Amlodipine Besylate (Norvasc) 10 mg PO DAILY [facility] Last Admin: 05/27/18 10:13 Dose: 10 mg Amoxicillin/Clavulanate Potassium (Augmentin) 875 mg PO Q12HR [facility] Benzonatate (Tessalon) 100 mg PO TIDPRN PRN PRN Reason: Cough Last Admin: 05/27/18 10:16 Dose: 100 mg Bupropion HCl (Wellbutrin Xl) 150 mg PO BID [facility] Last Admin: 05/27/18 10:13 Dose: 150 mg Doxycycline Monohydrate (Vibramycin) 100 mg PO BID [facility] Guaifenesin (Mucinex) 600 mg PO Q12HR [facility] Last Admin: 05/27/18 10:13 Dose: 600 mg Miscellaneous Medication (Pharmacy To Dose) 1 each IVPB PRN PRN PRN Reason: Pharmacy to dose Ondansetron HCl (Zofran) 4 mg SLOW IVP Q6H PRN PRN Reason: Nausea/Vomiting Last Admin: 05/27/18 13:34 Dose: 4 mg Pantoprazole Sodium (Protonix) 20 mg PO DAILY [facility] Last Admin: 05/27/18 10:13 Dose: 20 mg Potassium Chloride (Klor-Con) 40 meq PO BID-[facility] Stop: 05/28/18 08:01 Sodium Chloride (Flush - Normal Saline) 10 ml IVF Q12HR [facility] Last Admin: 05/27/18 10:17 Dose: Not Given Sodium Chloride (Flush - Normal Saline) 10 ml IVF PRN PRN PRN Reason: Saline Flush
[2018-05-27] MEDS: Amoxicillin/Potassium Clav 875 MG TAB PO SCH (20:09)
[2018-05-27] MEDS: Doxycycline 100 MG CAP PO SCH (20:10)
[2018-05-27] MEDS: Amitriptyline HCl 25 MG TAB PO SCH (20:18)
[2018-05-28 07:00] LABS: Anion Gap 11 mmol/L (10-20); BUN (Urea Nitrogen) 6 mg/dL (8.4-25.7); Calc. Creatinine Clearance 158 mL/min (70-130); Calcium 8.7 mg/dL (7.8-10.44); Carbon Dioxide 25 mmol/L (22-29); Chloride 113 mmol/L (98-107); Estimated GFR-MDRD 90; Glucose 84 mg/dL (70-105); Potassium 3.5 mmol/L (3.5-5.1); Sodium 145 mmol/L (136-145)
[2018-05-28 07:08] VITALS: TEMP 98.5
[2018-05-28] MEDS: guaiFENesin ER 600 MG TAB PO SCH ×2 (08:05→20:35)
[2018-05-28] MEDS: Amoxicillin/Potassium Clav 875 MG TAB PO SCH ×2 (08:05→20:35)
[2018-05-28] MEDS: Doxycycline 100 MG CAP PO SCH ×2 (08:05→20:35)
[2018-05-28] MEDS: Amlodipine 10 MG TAB PO SCH (08:05)
[2018-05-28] MEDS: Bupropion 150 MG XL TAB PO SCH ×2 (08:05→20:35)
[2018-05-28 08:35] LABS: Band 3 % (5-11); Eosinophils 4 % (0-10); Hemoglobin 12.3 g/dL (14.0-18.0); Lymphocytes 17 % (21-51); MDiff Complete? YES; Mean Corpuscular HGB CONC 33.1 g/dL (32.0-36.0); Mean Corpuscular Hemoglobin 29.8 pg (27.0-31.0); Mean Platelet Volume 8.1 fL (7.4-10.4); Monocytes 12 % (0-10); Neutrophil 64 % (42-75); Platelet Count 286 thou/uL (130-400); RBC Distribution Width 13.2 % (11.5-14.5); Red Blood Cell (RBC) Count 4.13 mill/uL (4.70-6.10); White Blood Cell (WBC) Count 10.3 thou/uL (4.8-10.8)
--- NOTE | 2018-05-28 13:33 | PDOC.PN ---
- Subjective Encounter Start Date: 05/28/18 Encounter Start Time: 10:30 Subjective: pt up in bed feels well - Objective Resuscitation Status - Order Detail: 05/23/18 18:03 Resuscitation Status Routine Resuscitation Status: FULL: Full Resuscitation Vital Signs & Weight: Vital Signs (12 hours) Temp Pulse Resp BP Pulse Ox 05/28/18 12:38 101 H 20 96 05/28/18 08:05 90 05/28/18 08:00 93 L 05/28/18 07:09 90 16 95 05/28/18 06:59 98.5 F 88 18 143/86 H 92 L Weight Weight 296 lb 8.348 oz I&O: 05/27/18 05/28/18 05/29/18 06:59 06:59 06:59 Intake Total 240 Balance 240 Result Diagrams: 05/28/18 06:06 05/28/18 06:06 Phys Exam - Physical Examination Neck: no nodes, no JVD, supple, full ROM Cardiovascular: RRR, no significant murmur, no rub, gallop, irregular Gastrointestinal: soft, non-tender, no distention, positive bowel sounds Musculoskeletal: no edema, pulses present, edema present Dx/Plan (1) Sepsis Code(s): A41.9 - SEPSIS, UNSPECIFIED ORGANISM Status: Acute (2) Pneumonia and influenza Status: Acute (3) Obesity Code(s): E66.9 - OBESITY, UNSPECIFIED Status: Acute - Plan will continue oral abx for now -: blood cx positive possible contaminant * . Review of Systems - Review of Systems Respiratory: negative: Cough, Dry, Shortness of Breath, Hemoptysis, SOB with Excertion, Pleuritic Pain, Sputum, Wheezing Cardiovascular: negative: chest pain, palpitations, orthopnea, paroxysmal nocturnal dyspnea, edema, light headedness, other Gastrointestinal: negative: Nausea, Vomiting, Abdominal Pain, Diarrhea, Constipation, Melena, Hematochezia, Other - Medications/Allergies Allergies/Adverse Reactions: Allergies Allergy/AdvReac Type Severity Reaction Status Date / Time latex Allergy Intermediate Rash Verified 05/23/18 20:25 Medications: Current Medications Acetaminophen (Tylenol) 650 mg PO Q6H PRN PRN Reason: Headache/Fever or Pain Last Admin: 05/26/18 18:00 Dose: 650 mg Albuterol/Ipratropium (Duoneb) 3 ml NEB [id number] [facility] Last Admin: 05/28/18 12:38 Dose: 3 ml Amitriptyline HCl (Elavil) 50 mg PO HS [facility] Last Admin: 05/27/18 20:18 Dose: Not Given Amlodipine Besylate (Norvasc) 10 mg PO DAILY [facility] Last Admin: 05/28/18 08:05 Dose: 10 mg Amoxicillin/Clavulanate Potassium (Augmentin) 875 mg PO Q12HR [facility] Last Admin: 05/28/18 08:05 Dose: 875 mg Benzonatate (Tessalon) 100 mg PO TIDPRN PRN PRN Reason: Cough Last Admin: 05/27/18 10:16 Dose: 100 mg Bupropion HCl (Wellbutrin Xl) 150 mg PO BID [facility] Last Admin: 05/28/18 08:05 Dose: 150 mg Doxycycline Hyclate (Vibramycin) 100 mg PO BID [facility] Last Admin: 05/28/18 08:05 Dose: 100 mg Guaifenesin (Mucinex) 600 mg PO Q12HR [facility] Last Admin: 05/28/18 08:05 Dose: 600 mg Ondansetron HCl (Zofran) 4 mg SLOW IVP Q6H PRN PRN Reason: Nausea/Vomiting Last Admin: 05/27/18 13:34 Dose: 4 mg Pantoprazole Sodium (Protonix) 20 mg PO DAILY [facility] Last Admin: 05/28/18 08:05 Dose: 20 mg Sodium Chloride (Flush - Normal Saline) 10 ml IVF Q12HR [facility] Last Admin: 05/28/18 08:08 Dose: 10 ml Sodium Chloride (Flush - Normal Saline) 10 ml IVF PRN PRN PRN Reason: Saline Flush
[2018-05-28] MEDS: Amitriptyline HCl 25 MG TAB PO SCH (20:39)
[2018-05-29 07:53] VITALS: BP 141/86
[2018-05-29] MEDS: Amoxicillin/Potassium Clav 875 MG TAB PO SCH (08:25)
[2018-05-29] MEDS: Bupropion 150 MG XL TAB PO SCH (08:25)
[2018-05-29] MEDS: Amlodipine 10 MG TAB PO SCH (08:25)
[2018-05-29] MEDS: guaiFENesin ER 600 MG TAB PO SCH (08:25)
[2018-05-29] MEDS: Doxycycline 100 MG CAP PO SCH (08:25)
--- NOTE | 2018-05-30 15:54 | DIS ---
DATE OF ADMISSION: 05/23/2018 DATE OF DISCHARGE: 05/29/2018 DISCHARGE DIAGNOSES: As of the following. 1. Sepsis. 2. Pneumonia after influenza. 3. Obesity. HOSPITAL COURSE: The patient is a 52-year-old male who initially presented to the hospital with complaints of shortness of breath, cough, and fevers. He was found to have significant leukocytosis and also right upper and middle lobe pneumonia. The patient was started on broad-spectrum antibiotics given the fact that he was recently diagnosed with the flu him and his family. Please refer to my H and P for further details. The patient continued to improve, however, the next day of his hospital stay, he did have a significant amount of leukocytosis at which time CT was done. CT does indicate a right upper lobe pneumonia. The patient continued to improve clinically and his antibiotics were changed to oral. HOME MEDICATIONS: He will be sent home with, 1. Augmentin 875 b.i.d. 2. Doxycycline 100 mg b.i.d. 3. Norvasc 10 mg daily. 4. Bupropion 150 b.i.d. 5. Losartan and hydrochlorothiazide 1 tablet p.o. daily. 6. Elavil 50 mg at bedtime. PHYSICAL EXAMINATION: VITAL SIGNS: On discharge, temperature 98.5, 16 respirations, 96% on room air, blood pressure 141/86. GENERAL: He is awake, alert, and oriented x3. He does not appear in distress. CV: S1, S2 present. No murmurs, rubs, or gallops. ABDOMEN: Soft and nontender. Bowel sounds are present x2. EXTREMITIES: No edema. DISCHARGE DISPOSITION: Again he will be discharged to home. FOLLOWUP: He will follow up with his primary care doctor as an outpatient. Job ID: [id number]
== END 2018-05-29 14:11 | disposition home or self-care (01) | DRG 871 ==
LOC: ERS 13:56 → ERHOLD 16:12 → T4-A 19:41
PROVIDERS: ADMIT Internal Medicine; ATTEND Internal Medicine
DX: A41.89 Other specified sepsis (principal); J11.00 Influenza due to unidentified influenza virus with unspecified type of pneumonia; Z68.41 Body mass index [BMI] 40.0-44.9, adult; I10 Essential (primary) hypertension; E66.9 Obesity, unspecified; D47.2 Monoclonal gammopathy; D64.9 Anemia, unspecified; G47.33 Obstructive sleep apnea (adult) (pediatric); J45.909 Unspecified asthma, uncomplicated; Z79.899 Other long term (current) drug therapy; Z91.040 Latex allergy status
CPT/HCPCS: 36415; 71046; 71260; 80048; 80053; 80202; 81003; 81015; 83605; 83690; 83880; 85025; 87040; 87070; 87205; 87899; 94640; 96361; 96365; 96367; 96368; J1956; J2405; J2543; J2920; J3370; J3490; J7050; J7620; Q9966

== ENCOUNTER 2018-06-07 10:34 | Outpatient (CLI) | payer MEDICARE, MEDICAID ==
--- NOTE | 2018-06-07 10:48 | RAD ---
TWO VIEW CHEST: INDICATION: Followup pneumonia. COMPARISON: 05/23/2018. FINDINGS: The right upper lobe consolidation noted on the prior exam has cleared. The lungs are well aerated a nd clear of infiltrate today. Vascular markings normal. Cardiomediastinum unremarkable. Old right rib fractures are noted. IMPRESSION: Previously noted right upper lobe infiltrate has resolved. Lungs appear clear today. POS: [facility]
== END 2018-06-07 10:35 | disposition home or self-care (01) ==
LOC: RAD-FRANK 10:34
PROVIDERS: ATTEND Nurse Practitioner Family
DX: J18.0 Bronchopneumonia, unspecified organism (principal)
CPT/HCPCS: 71046

== ENCOUNTER 2018-08-08 10:03 | Outpatient (CLI) | payer MEDICARE, MEDICAID ==
--- NOTE | 2018-08-08 11:20 | RAD ---
LEFT SHOULDER 3 VIEWS: Date: 08/08/18 HISTORY: Left shoulder pain. FINDINGS/IMPRESSION: There are mild degenerative changes in the acromioclavicular joint. No acute fracture, dislocation, o r bony destruction is seen. POS: [facility]
== END 2018-08-08 10:04 | disposition home or self-care (01) ==
LOC: RAD-FRANK 10:03
PROVIDERS: ATTEND Nurse Practitioner Family
DX: M25.512 Pain in left shoulder (principal); M19.012 Primary osteoarthritis, left shoulder

== ENCOUNTER 2018-08-16 06:41 | Emergency (ER) | payer MEDICARE, MEDICAID | END 2018-08-16 07:46 | disposition left against medical advice (07) | LOC: ERS 06:41 | DX: Z53.21 Procedure and treatment not carried out due to patient leaving prior to being seen by health care provider (principal) ==

== ENCOUNTER 2018-08-31 08:41 | Outpatient (CLI) | payer MEDICARE, MEDICAID ==
--- NOTE | 2018-08-31 09:25 | RAD ---
PA AND LATERAL CHEST: HISTORY: Pneumonia. Followup. COMPARISON: 06/07/2018 FINDINGS: The heart size is normal. No confluent areas of consolidation, pneumothoraces, or pleural effusions are seen. Old right-sided rib fracture is again seen. IMPRESSION: No acute process. POS: [facility]
== END 2018-08-31 08:42 | disposition home or self-care (01) ==
LOC: RAD-FRANK 08:41
PROVIDERS: ATTEND Nurse Practitioner Family
DX: J18.1 Lobar pneumonia, unspecified organism (principal)
CPT/HCPCS: 71046

== ENCOUNTER 2018-09-14 09:00 | Outpatient (CLI) | payer MEDICARE, MEDICAID ==
--- NOTE | 2018-09-14 09:12 | RAD ---
XR Chest Pa Lat @ [facility]OB HISTORY: Dyspnea COMPARISON: 08/31/2018 FINDINGS: The heart size is normal. The lungs are well expanded without focal areas of consolidation, pneumothorax or pleural effusions. Old right-sided rib fractures again seen. IMPRESSION: No radiographic evidence of acute cardiopulmonary process.
== END 2018-09-14 09:01 | disposition home or self-care (01) ==
LOC: RAD 09:00
PROVIDERS: ATTEND Internal Medicine Critical Care Medicine
DX: R06.00 Dyspnea, unspecified (principal)
CPT/HCPCS: 71046

== ENCOUNTER 2018-12-22 09:59 | Outpatient (CLI) | payer MEDICARE, MEDICAID ==
--- NOTE | 2018-12-22 11:15 | RAD ---
RADIOGRAPH CHEST 2 VIEWS: DATE: 12/22/2018 HISTORY: 53-year-old male with cough. FINDINGS: There is no airspace density, pulmonary edema, pleural effusion, pneumothorax, or cardiomegaly. IMPRESSION: No acute cardiopulmonary findings.
--- NOTE | 2018-12-22 11:38 | RAD ---
EXAM: XR Bone Survey Adult STANDARD PROVIDED CLINICAL HISTORY: Staging of multiple myeloma. COMPARISON: 08/24/2017 FINDINGS: Stable sclerotic densities overlying the posterior skull are again seen and unchanged. The rounded sc lerotic lesions overlying the mid skull on the lateral projection on prior study are not seen on the current exam. No additional sclerotic lesions are seen, and no lytic osseous lesion is identified . No other interval change. IMPRESSION: 1. Stable sclerotic densities overlying the posterior skull; however, these sclerotic densities overl von the mid skull on the lateral projection on prior study are not seen on today's exam. 2. No lytic lesions are seen.
== END 2018-12-22 10:00 | disposition home or self-care (01) ==
LOC: BICRAD 09:59
PROVIDERS: ATTEND Internal Medicine Medical Oncology
DX: C90.00 Multiple myeloma not having achieved remission (principal); J18.9 Pneumonia, unspecified organism; R05 Cough; R93.0 Abnormal findings on diagnostic imaging of skull and head, not elsewhere classified
CPT/HCPCS: 36415; 71046; 77075; 80053; 82248; 83615; 83883; 84100; 84165; 84550

== ENCOUNTER 2019-01-15 21:00 | Emergency (ER) | payer MEDICARE, MEDICAID ==
[2019-01-15 21:32] LABS: #Basophils 0.1 thou/uL (0.0-0.2); #Eosinphils 0.1 thou/uL (0.0-0.7); #Lymphocytes 1.8 thou/uL (1.20-3.40); #Neutrophils 8.5 thou/uL (1.40-6.50); %Basophils 0.4 % (0.0-1.0); %Eosinophils 0.7 % (0.0-10.0); %Monocytes 8.9 % (0.0-10.0); Hemoglobin 13.9 g/dL (14.0-18.0); Mean Corpuscular HGB CONC 33.5 g/dL (32.0-36.0); Mean Corpuscular Hemoglobin 29.8 pg (27.0-31.0); Mean Corpuscular Volume 88.8 fL (78.0-98.0); Mean Platelet Volume 8.4 fL (7.4-10.4); Platelet Count 203 thou/uL (130-400); RBC Distribution Width 12.6 % (11.5-14.5); Red Blood Cell (RBC) Count 4.66 mill/uL (4.70-6.10); White Blood Cell (WBC) Count 11.5 thou/uL (4.8-10.8)
--- NOTE | 2019-01-15 21:46 | RAD ---
RADIOGRAPH CHEST 1 VIEW: DATE: 01/15/2019 HISTORY: 53-year-old male with cough FINDINGS: There are no airspace densities, pulmonary edema, pneumothorax, or cardiomegaly. The lateral costophr enic angles are sharp. IMPRESSION: No acute cardiopulmonary findings.
[2019-01-15 21:53] LABS: ALT (SGPT) 18 U/L (8-55); AST (SGOT) 15 U/L (5-34); Albumin 3.8 g/dL (3.5-5.0); Alkaline Phosphatase 89 U/L (40-110); Anion Gap 11 mmol/L (10-20); BUN (Urea Nitrogen) 14 mg/dL (8.4-25.7); Bilirubin, Total 0.7 mg/dL (0.2-1.2); Calc. Creatinine Clearance 0 mL/min (70-130); Calcium 9.3 mg/dL (7.8-10.44); Carbon Dioxide 27 mmol/L (22-29); Chloride 99 mmol/L (98-107); Estimated GFR-MDRD 87; Globulin 6.9 g/dL (2.4-3.5); Glucose 82 mg/dL (70-105); Potassium 3.9 mmol/L (3.5-5.1); Protein, Total 10.7 g/dL (6.0-8.3); Sodium 133 mmol/L (136-145)
[2019-01-15] MEDS ORDERED: HYDROcodone/Acetaminophen 10/325 mg Tablet ONE (22:12)
[2019-01-15 22:34] LABS: Bilirubin Negative (Negative); Blood, Urine Negative (Negative); Clarity Clear (Clear); Glucose, Urine (Dipstick) Normal (Negative); Leukocyte Negative Leu/uL (Negative); Nitrite Negative (Negative); Protein, Urine (Dipstick) Negative (Neg-Trace); Urobilinogen Normal mg/dL (Less than 2)
== END 2019-01-16 00:05 | disposition home or self-care (01) ==
LOC: ERS 21:00
DX: R07.89 Other chest pain (principal); R05 Cough; I10 Essential (primary) hypertension; F32.9 Major depressive disorder, single episode, unspecified
CPT/HCPCS: 71045; 80053; 81003; 83605; 85025; 87040; 87077; 87086; 87186; 87804; 93005; 94760; 96360; 96361; J7620

== ENCOUNTER 2019-02-28 14:16 | Outpatient (CLI) | payer MEDICARE, MEDICAID ==
--- NOTE | 2019-02-28 14:28 | RAD ---
EXAM: 3 views of the left ankle HISTORY: Ankle pain COMPARISON: None FINDINGS: 3 views of the left ankle shows no evidence of acute fracture or dislocation. No soft tissu e swelling is seen. No degenerative changes are present. IMPRESSION: No evidence of acute osseous abnormality.
== END 2019-02-28 14:17 | disposition home or self-care (01) ==
LOC: RAD-FRANK 14:16
PROVIDERS: ATTEND Nurse Practitioner Family
DX: M25.572 Pain in left ankle and joints of left foot (principal)

== ENCOUNTER 2019-04-03 07:16 | Outpatient (CLI) | payer MEDICARE, MEDICAID ==
--- NOTE | 2019-04-03 10:12 | CT ---
CT BRAIN WITHOUT CONTRAST: COMPARISON: 06/12/2011, bone survey 12/22/2018. HISTORY: Multiple myeloma. TECHNIQUE: Multiple contiguous axial images were obtained in a CT of the brain without contrast. FINDINGS: The brain was normal in morphology and attenuation without focal lesions or confluent areas of infarc tion. There is no evidence of hydrocephalus, intracranial hemorrhage, or extraaxial fluid collection. There are lytic lesions near the vertex of the skull which likely represent arachnoid granulations. No suspicious lytic lesions are seen in the calvarium. The paranasal sinuses and mastoid air cells a re well aerated. IMPRESSION: 1. No suspicious osseous lesions identified. 2. No evidence of acute intracranial abnormality. POS: [facility]
--- NOTE | 2019-04-03 11:18 | CT ---
CT LUMBAR SPINE PERFORMED WITHOUT CONTRAST ENHANCEMENT: Date: 04/03/2019 HISTORY: Patient has multiple myeloma. COMPARISON: Skeletal survey that was performed on 12/22/[address] of the lumbar spine performed 03/20/2010. FINDINGS: There is cupping to the end plates, probably on the basis of bony demineralization. This appearance i s essentially unchanged since the 2010 CT study. Disc space height all appears fairly well preserved. No lytic bone lesions are identified. No periaortic adenopathy. L1-2: Unremarkable. L2-3: Unremarkable. L3-4: Unremarkable. L4-5: There is minimal disc bulge. No canal or foraminal narrowing. L5-S1: Mild disc bulge is present. There is a minimal spondylolisthesis related to bilateral pars de fects and some mild bilateral foraminal narrowing. IMPRESSION: 1. No evidence of any lytic bone lesions. 2. Bilateral pars defects and a minimal spondylolisthesis of L5 on S1. POS: [facility]
--- NOTE | 2019-04-03 11:31 | CT ---
CT OF PELVIS PERFORMED WITHOUT CONTRAST ENHANCEMENT: HISTORY: Multiple myeloma. COMPARISON: A bone survey of 12/22/2018. FINDINGS: There is no significant periaortic adenopathy. The appendix is normal. No free fluid. There are some arthritic changes of both hips. SI joints are symmetric. There are no signs of any l ytic bone lesions. No soft tissue masses. IMPRESSION: Essentially unremarkable CT of the pelvis. POS: [facility]
== END 2019-04-03 07:17 | disposition home or self-care (01) ==
LOC: BICCT 07:16
PROVIDERS: ATTEND Internal Medicine Medical Oncology
DX: C90.01 Multiple myeloma in remission (principal); D47.2 Monoclonal gammopathy; M43.17 Spondylolisthesis, lumbosacral region
CPT/HCPCS: 70450; 72131; 72192

== ENCOUNTER 2019-05-15 13:36 | Outpatient (CLI) | payer MEDICARE, MEDICAID ==
--- NOTE | 2019-05-15 13:49 | RAD ---
XR Chest Pa Lat STANDARD HISTORY: Cough COMPARISON: 01/15/2019 FINDINGS: The heart size is normal. The lungs are well expanded without focal areas of consolidation, pneumothorax or pleural effusions. There are old right rib fractures. IMPRESSION: No radiographic evidence of acute cardiopulmonary process.
== END 2019-05-15 13:37 | disposition home or self-care (01) ==
LOC: RAD-FRANK 13:36
PROVIDERS: ATTEND Nurse Practitioner Family
DX: R05 Cough (principal)
CPT/HCPCS: 71046

== ENCOUNTER 2019-11-06 08:17 | Day surgery (SDC) | payer MEDICARE, MEDICAID ==
[2019-11-03 09:16] VITALS: BMI 44.6
[2019-11-06 08:37] LABS: #Eosinphils 0.1 thou/uL (0.0-0.7); #Lymphocytes 2.1 thou/uL (1.20-3.40); #Monocytes 0.4 thou/uL (0.11-0.59); #Neutrophils 4.2 thou/uL (1.40-6.50); %Basophils 0.3 % (0.0-1.0); %Eosinophils 1.8 % (0.0-10.0); %Lymphocytes 30.8 % (21.0-51.0); %Monocytes 6.2 % (0.0-10.0); %Neutrophils 60.9 % (42.0-75.0); Hemoglobin 12.9 g/dL (14.0-18.0); Mean Corpuscular HGB CONC 33.4 g/dL (32.0-36.0); Mean Corpuscular Hemoglobin 30.7 pg (27.0-31.0); Mean Corpuscular Volume 91.9 fL (78.0-98.0); Platelet Count 230 thou/uL (130-400); RBC Distribution Width 13.4 % (11.5-14.5); White Blood Cell (WBC) Count 6.9 thou/uL (4.8-10.8)
[2019-11-06 08:46] LABS: PTT 26.4 sec (22.9-36.1); Prothrombin Time 13.3 sec (12.0-14.7)
[2019-11-06 11:27] VITALS: BP 133/80; TEMP 98.3
--- NOTE | 2019-11-06 11:29 | CT ---
CT-guided bone marrow aspiration/biopsy Conscious sedation: At least 40 minutes spent with the patient for conscious sedation. HISTORY: Monoclonal gammopathy. FINDINGS: After explaining the procedure and answering all questions, limited CT imaging of the pelvi s was performed with patient prone. Sterile technique, buffered local anesthesia, CT guidance, conscious sedation, and a posterior approa ch were used to carefully advance an 11-gauge bone biopsy needle to the posterior cortex of the left iliac body. Position confirmed with CT imaging. Needle was carefully engaged through the bone co rtex. Blood aspirate and core biopsy were obtained and submitted to pathology for evaluation. Postprocedure imaging shows no evidence of complication. Patient tolerated the procedure well and was returned to the holding area in good condition for further monitoring. IMPRESSION : Technically successful CT-guided bone marrow aspiration/biopsy.
--- NOTE | 2019-11-07 17:24 | CT ---
"PRELIMINARY REPORT" CT-guided bone marrow aspiration/biopsy Conscious sedation: At least 40 minutes spent with the patient for conscious sedation. HISTORY: Monoclonal gammopathy. FINDINGS: After explaining the procedure and answering all questions, limited CT imaging of the pelvi s was performed with patient prone. Sterile technique, buffered local anesthesia, CT guidance, conscious sedation, and a posterior approa ch were used to carefully advance an 11-gauge bone biopsy needle to the posterior cortex of the left iliac body. Position confirmed with CT imaging. Needle was carefully engaged through the bone co rtex. Blood aspirate and core biopsy were obtained and submitted to pathology for evaluation. Postprocedure imaging shows no evidence of complication. Patient tolerated the procedure well and was returned to the holding area in good condition for further monitoring. IMPRESSION : Technically successful CT-guided bone marrow aspiration/biopsy. Transcribed Date/Time: 11/07/2019 5:24 PM
== END 2019-11-06 12:01 | disposition home or self-care (01) ==
LOC: CT 08:17
PROVIDERS: ATTEND Internal Medicine Medical Oncology
PROC: 07DR3ZX Extraction of Iliac Bone Marrow, Percutaneous Approach, Diagnostic (ICD-10-PCS; principal; 2019-11-06)
DX: D47.2 Monoclonal gammopathy (principal); I10 Essential (primary) hypertension; F32.9 Major depressive disorder, single episode, unspecified; G47.30 Sleep apnea, unspecified; K21.9 Gastro-esophageal reflux disease without esophagitis; K76.0 Fatty (change of) liver, not elsewhere classified; J45.909 Unspecified asthma, uncomplicated; G89.29 Other chronic pain; M54.5 Low back pain; E66.9 Obesity, unspecified; Z68.41 Body mass index [BMI] 40.0-44.9, adult; Z79.899 Other long term (current) drug therapy; Z91.040 Latex allergy status
CPT/HCPCS: 20225; 36415; 77002; 85025; 85097; 85610; 85730; 88184; 88237; 88264; 88280; 88305; 88311; 88313; 88342

== ENCOUNTER 2019-12-03 13:39 | Emergency (ER) | payer MEDICARE, MEDICAID, OTHER ==
--- NOTE | 2019-12-03 14:33 | RAD ---
Exam: Chest one view HISTORY:Congestion and cough. Comparison: 05/15/2019 FINDINGS: Cardiac silhouette: Normal Aorta: Unremarkable Pulmonary vessels: Normal Costophrenic angles: Clear LUNGS: No masses or consolidation. Pneumothorax: None Osseous abnormalities: None IMPRESSION: No acute cardiopulmonary process.
[2019-12-04 11:02] LABS: SARS-CoV-2 MS2 Positive; SARS-CoV-2 N Gene Negative; SARS-CoV-2 S Gene Negative; SARS-CoV-2 by NAA Not Detected (NotDetected); SARS-CoV-2 orf1ab Negative
== END 2019-12-03 15:06 | disposition home or self-care (01) ==
LOC: ERS 13:39
DX: J06.9 Acute upper respiratory infection, unspecified (principal); Z20.828 Contact with and (suspected) exposure to other viral communicable diseases; I10 Essential (primary) hypertension; F32.9 Major depressive disorder, single episode, unspecified; Z79.899 Other long term (current) drug therapy
CPT/HCPCS: 71045; U0003; 87635

== ENCOUNTER 2020-12-04 08:10 | Outpatient (CLI) | payer MEDICARE, MEDICAID | END 2020-12-04 08:11 | disposition home or self-care (01) | LOC: BICULT 08:10 | PROVIDERS: ATTEND Internal Medicine | DX: K76.0 Fatty (change of) liver, not elsewhere classified (principal); R10.11 Right upper quadrant pain; K21.9 Gastro-esophageal reflux disease without esophagitis | CPT/HCPCS: 76705 ==

== ENCOUNTER 2020-12-25 13:35 | Outpatient (CLI) | payer MEDICARE, MEDICAID | END 2020-12-25 13:36 | disposition home or self-care (01) | LOC: RAD-FRANK 13:35 | PROVIDERS: ATTEND Nurse Practitioner Family | DX: R05.9 Cough, unspecified (principal) | CPT/HCPCS: 71046 ==

== ENCOUNTER 2021-01-16 10:41 | Outpatient (CLI) | payer MEDICARE, MEDICAID | END 2021-01-16 10:42 | disposition home or self-care (01) | LOC: RAD-FRANK 10:41 | PROVIDERS: ATTEND Nurse Practitioner Family | DX: M25.521 Pain in right elbow (principal) ==

== ENCOUNTER 2021-03-31 10:25 | Outpatient (CLI) | payer MEDICARE, MEDICAID | END 2021-03-31 10:26 | disposition home or self-care (01) | LOC: RAD-FRANK 10:25 | PROVIDERS: ATTEND Nurse Practitioner Family | DX: M79.671 Pain in right foot (principal) ==

== ENCOUNTER 2021-06-12 07:49 | Outpatient (CLI) | payer MEDICARE, MEDICAID | END 2021-06-12 07:50 | disposition home or self-care (01) | LOC: RAD-FRANK 07:49 | PROVIDERS: ATTEND Nurse Practitioner Family | DX: M79.604 Pain in right leg (principal) ==

== ENCOUNTER 2021-08-15 07:31 | Outpatient (CLI) | payer OTHER, MEDICAID | END 2021-08-15 07:32 | disposition home or self-care (01) | LOC: ULT 07:31 | DX: R10.11 Right upper quadrant pain (principal); R93.2 Abnormal findings on diagnostic imaging of liver and biliary tract | CPT/HCPCS: 76700 ==

== ENCOUNTER 2021-09-05 15:38 | Emergency (ER) | payer OTHER, MEDICARE ==
[2021-09-05] MEDS ORDERED: Ibuprofen 200 MG TAB ONE (16:26)
[2021-09-05] MEDS ORDERED: Acetaminophen 500 MG TAB ONE (16:26)
[2021-09-05 17:15] LABS: ALT (SGPT) 20 U/L (8-55); AST (SGOT) 18 U/L (5-34); Albumin 3.7 g/dL (3.5-5.0); Alkaline Phosphatase 91 U/L (40-110); Anion Gap 14 mmol/L (10-20); BUN (Urea Nitrogen) 14 mg/dL (8.4-25.7); Bilirubin, Total 0.7 mg/dL (0.2-1.2); Calc. Creatinine Clearance 0 mL/min (70-130); Carbon Dioxide 21 mmol/L (22-29); Chloride 103 mmol/L (98-107); Estimated GFR 92; Globulin 6.6 g/dL (2.4-3.5); Glucose 84 mg/dL (70-105); Potassium 4.1 mmol/L (3.5-5.1); Protein, Total 10.3 g/dL (6.0-8.3); Sodium 134 mmol/L (136-145)
[2021-09-05 18:03] LABS: #Basophils 0.1 thou/uL (0.0-0.2); #Eosinphils 0.1 thou/uL (0.0-0.7); #Lymphocytes 1.1 thou/uL (1.20-3.40); #Monocytes 0.9 thou/uL (0.11-0.59); #Neutrophils 9.1 thou/uL (1.40-6.50); %Basophils 0.7 % (0.0-1.0); %Eosinophils 0.9 % (0.0-10.0); %Lymphocytes 9.7 % (21.0-51.0); %Monocytes 7.7 % (0.0-10.0); Hemoglobin 13.2 g/dL (14.0-18.0); Mean Corpuscular HGB CONC 32.1 g/dL (32.0-36.0); Mean Corpuscular Hemoglobin 30.4 pg (27.0-31.0); Mean Corpuscular Volume 94.7 fL (78.0-98.0); Mean Platelet Volume 9.1 fL (7.4-10.4); Platelet Count 177 thou/uL (130-400); RBC Distribution Width 12.6 % (11.5-14.5); Red Blood Cell (RBC) Count 4.33 mill/uL (4.70-6.10); White Blood Cell (WBC) Count 11.3 thou/uL (4.8-10.8)
[2021-09-05] MEDS ORDERED: Morphine 4 MG/ML VIAL ONE (20:39)
[2021-09-05 20:51] LABS: SARS-CoV-2 NAA Rapid Test Not Detected (NotDetected)
== END 2021-09-05 20:47 | disposition home or self-care (01) ==
LOC: ERS 15:38
DX: R50.83 Postvaccination fever (principal); T50.Z95A Adverse effect of other vaccines and biological substances, initial encounter; I10 Essential (primary) hypertension; E78.5 Hyperlipidemia, unspecified; K21.9 Gastro-esophageal reflux disease without esophagitis; Z20.822 Contact with and (suspected) exposure to COVID-19
CPT/HCPCS: 0240U; 71045; 80053; 83605; 84484; 85025; 87040; 93005; 96361; 96374; 99284; 36415; J2270

== ENCOUNTER 2021-10-25 08:15 | Emergency (ER) | payer MEDICARE, OTHER | END 2021-10-25 08:55 | disposition home or self-care (01) | LOC: ERS 08:15 | DX: J06.9 Acute upper respiratory infection, unspecified (principal); I10 Essential (primary) hypertension; E78.5 Hyperlipidemia, unspecified; K21.9 Gastro-esophageal reflux disease without esophagitis | CPT/HCPCS: 99283 ==

== ENCOUNTER 2021-12-18 08:42 | Emergency (ER) | payer OTHER, MEDICAID ==
[2021-12-18 09:15] LABS: #Eosinphils 0.1 thou/uL (0.0-0.7); #Lymphocytes 2.3 thou/uL (1.20-3.40); #Monocytes 0.6 thou/uL (0.11-0.59); #Neutrophils 3.8 thou/uL (1.40-6.50); %Basophils 0.7 % (0.0-1.0); %Eosinophils 1.9 % (0.0-10.0); %Lymphocytes 33.2 % (21.0-51.0); %Monocytes 8.2 % (0.0-10.0); %Neutrophils 56.1 % (42.0-75.0); Hemoglobin 13.1 g/dL (14.0-18.0); Mean Corpuscular HGB CONC 32.9 g/dL (32.0-36.0); Mean Corpuscular Hemoglobin 31.1 pg (27.0-31.0); Mean Corpuscular Volume 94.6 fl (78.0-98.0); Mean Platelet Volume 8.2 fL (7.4-10.4); Platelet Count 231 thou/uL (130-400); RBC Distribution Width 13.7 % (11.5-14.5); White Blood Cell (WBC) Count 6.8 thou/uL (4.8-10.8)
[2021-12-18 09:18] LABS: Bilirubin Negative (Negative); Blood, Urine Negative (Negative); Clarity Clear (Clear); Glucose, Urine (Dipstick) Normal (Negative); Ketone, Urine Negative (Negative); Leukocyte Negative Leu/uL (Negative); Nitrite Negative (Negative); Protein, Urine (Dipstick) Negative (Neg-Trace); Urobilinogen Normal mg/dL (Less than 2)
[2021-12-18 09:30] LABS: ALT (SGPT) 29 U/L (8-55); AST (SGOT) 18 U/L (5-34); Albumin 3.4 g/dL (3.5-5.0); Alkaline Phosphatase 87 U/L (40-110); Anion Gap 9 mmol/L (10-20); BUN (Urea Nitrogen) 16 mg/dL (8.4-25.7); Bilirubin, Total 0.8 mg/dL (0.2-1.2); Calc. Creatinine Clearance 0 mL/min (70-130); Calcium 8.6 mg/dL (7.8-10.44); Carbon Dioxide 24 mmol/L (22-29); Chloride 104 mmol/L (98-107); Estimated GFR 105; Globulin 5.5 g/dL (2.4-3.5); Glucose 84 mg/dL (70-105); Lipase 42 U/L (8-78); Potassium 3.9 mmol/L (3.5-5.1); Protein, Total 8.9 g/dL (6.0-8.3); Sodium 133 mmol/L (136-145)
== END 2021-12-18 12:02 | disposition home or self-care (01) ==
LOC: ERS 08:42
DX: R06.00 Dyspnea, unspecified (principal); K76.0 Fatty (change of) liver, not elsewhere classified; R10.9 Unspecified abdominal pain; I10 Essential (primary) hypertension; E78.5 Hyperlipidemia, unspecified; K21.9 Gastro-esophageal reflux disease without esophagitis
CPT/HCPCS: 36415; 71045; 76705; 80053; 81003; 83690; 84484; 85025; 85379; 93005; 94760

== ENCOUNTER 2022-03-02 07:09 | Emergency (ER) | payer OTHER, MEDICAID ==
[2022-03-02] MEDS ORDERED: predniSONE 20 MG TAB ONE (07:45)
[2022-03-02] MEDS ORDERED: Ipratropium/Albuterol 3 ML NEB ONE (08:00)
[2022-03-02] MEDS ORDERED: Ketorolac Tromethamine 30 MG/ML VIAL ONE (08:45)
== END 2022-03-02 09:00 | disposition home or self-care (01) ==
LOC: ERS 07:09
DX: J20.8 Acute bronchitis due to other specified organisms (principal); Z20.822 Contact with and (suspected) exposure to COVID-19; I10 Essential (primary) hypertension; E78.5 Hyperlipidemia, unspecified; K21.9 Gastro-esophageal reflux disease without esophagitis; Z79.899 Other long term (current) drug therapy
CPT/HCPCS: 71045; 87081; 87430; 87804 ×2; 94640; U0003; U0005; 96372; J1885; J7512; J7620

== ENCOUNTER 2022-03-05 08:25 | Outpatient (CLI) | payer OTHER, MEDICAID | END 2022-03-05 08:26 | disposition home or self-care (01) | LOC: RAD 08:25 | PROVIDERS: ATTEND Internal Medicine Critical Care Medicine | DX: R06.00 Dyspnea, unspecified (principal) | CPT/HCPCS: 71046 ==

== ENCOUNTER 2022-03-11 13:55 | Outpatient (CLI) | payer OTHER, MEDICAID | END 2022-03-11 13:56 | disposition home or self-care (01) | LOC: CT 13:55 | PROVIDERS: ATTEND Internal Medicine Medical Oncology | DX: C90.00 Multiple myeloma not having achieved remission (principal); D47.2 Monoclonal gammopathy | CPT/HCPCS: 36415; 80053; 82248; 82728; 83615; 83883; 84100; 84155; 84165; 84550; 76497 ==

== ENCOUNTER 2022-04-08 12:14 | Outpatient (CLI) | payer OTHER, MEDICAID | END 2022-04-08 12:15 | disposition home or self-care (01) | LOC: NM 12:14 | PROVIDERS: ATTEND Physician Assistant Medical | DX: K76.0 Fatty (change of) liver, not elsewhere classified (principal); K21.9 Gastro-esophageal reflux disease without esophagitis; R10.11 Right upper quadrant pain | CPT/HCPCS: 78227; A9537 ==

== ENCOUNTER 2022-10-24 07:57 | Emergency (ER) | payer OTHER | END 2022-10-24 08:31 | disposition home or self-care (01) | LOC: ERS 07:57 | DX: U07.1 COVID-19 (principal); I10 Essential (primary) hypertension; K21.9 Gastro-esophageal reflux disease without esophagitis; E78.5 Hyperlipidemia, unspecified; Z79.899 Other long term (current) drug therapy | CPT/HCPCS: 87635; 99282 ==

== ENCOUNTER 2023-03-13 06:33 | Emergency (ER) | payer MEDICARE ==
[2023-03-13 07:18] LABS: Hematocrit 37.5 % (42.0-52.0); Hemoglobin 12.3 g/dL (14.0-18.0); Manual Diff?? YES; Mean Corpuscular HGB CONC 32.8 g/dL (32.0-36.0); Mean Corpuscular Hemoglobin 29.9 pg (27.0-31.0); Mean Platelet Volume 10.4 fL (7.4-10.4); Platelet Count 194 10x3/uL (130-400); RBC Distribution Width 13.6 % (11.5-14.5); Red Blood Cell (RBC) Count 4.12 mill/uL (4.70-6.10); White Blood Cell (WBC) Count 5.1 10x3/uL (4.8-10.8)
[2023-03-13 07:41] LABS: ALT (SGPT) 16 U/L (8-55); AST (SGOT) 16 U/L (5-34); Albumin 3.4 g/dL (3.5-5.0); Alkaline Phosphatase 88 U/L (40-110); Anion Gap 8 mmol/L (10-20); BUN (Urea Nitrogen) 12 mg/dL (8.4-25.7); Bilirubin, Total 0.7 mg/dL (0.2-1.2); Calc. Creatinine Clearance 0 mL/min (70-130); Calcium 8.4 mg/dL (7.8-10.44); Carbon Dioxide 22 mmol/L (22-29); Chloride 106 mmol/L (98-107); Estimated GFR 105; Globulin 5.9 g/dL (2.4-3.5); Glucose 88 mg/dL (70-105); Lipase 91 U/L (8-78); Potassium 3.3 mmol/L (3.5-5.1); Protein, Total 9.3 g/dL (6.0-8.3); Sodium 133 mmol/L (136-145)
[2023-03-13 08:13] LABS: Delete Auto Diff?? YES
[2023-03-13 08:23] LABS: Bilirubin Negative (Negative); Blood, Urine 1+ (Negative); CAUTI Indications for Culture Fever or rigors; Clarity Clear (Clear); Glucose, Urine (Dipstick) Normal (Negative); Ketone, Urine Negative (Negative); Leukocyte Negative Leu/uL (Negative); Nitrite Negative (Negative); Protein, Urine (Dipstick) 10 mg/dL (Neg-Trace); RBC/HPF 0-3 HPF (0-3); Squamous Epithelial None Seen HPF (0-3); Urobilinogen Normal mg/dL (Less than 2); WBC/HPF 0-3 HPF (0-3); pH, Urine 5.5 (5.0-9.0)
[2023-03-13 08:29] LABS: SARS-CoV-2 NAA Rapid Test Not Detected (NotDetected)
[2023-03-13 08:40] LABS: Bacteria/HPF 1+ HPF (None Seen)
[2023-03-13 08:42] LABS: Urine Culture Reflex No No
[2023-03-13 09:19] LABS: Anisocytosis SLIGHT = 6-15 cells HPF (0-5); Band 2 % (5-11); CellaVision Operator ID LAB.CMB; Eosinophils 7 % (0-10); Large Platelets 7.3 % (0-5); Lymphocytes 20 % (21-51); Macrocytosis SLIGHT = 6-15 cells HPF (0-5); Monocytes 17 % (0-10); Neutrophil 49 % (42-75); Plasma Cells 3 % (0-0); Platelet Adequacy Comment Platelets Normal; Polychromasia SLIGHT = 2-3 cells HPF (0-2); Reactive Lymphocytes 2 % (0-10); Total Cell Count 109
== END 2023-03-13 10:19 | disposition home or self-care (01) ==
LOC: ERS 06:33
DX: J02.9 Acute pharyngitis, unspecified (principal); R10.10 Upper abdominal pain, unspecified; R05.9 Cough, unspecified; R50.9 Fever, unspecified; I10 Essential (primary) hypertension
CPT/HCPCS: 0240U; 71045; 80053; 81001; 83690; 85025; 36415